=== PATIENT | male | born 1995 | race Caucasian/White ===

== ENCOUNTER 2017-07-17 21:09 | Emergency (ER) | payer OTHER ==
--- NOTE | 2017-07-17 21:25 | EDM.PDOC ---
ED HPI GENERAL MEDICAL PROBLEM - General Chief Complaint: Fever Stated Complaint: FEVER Time Seen by Provider: 07/17/17 21:25 Source of Information: Reports: Patient - History of Present Illness INITIAL COMMENTS - FREE TEXT/NARRATIVE: HISTORY AND PHYSICAL: History of present illness: [Patient presents with fever for 3 days waxing and waning he states his fever peaked at 105 at home he has been taking Tylenol fever has been hanging around 100 today he has no other symptoms such as nausea vomiting chills sweats no cough or abdominal pain no chest pain shortness breath dizziness or palpitation no bowel or urine symptoms, he is in no distress and nontoxic-appearing he does have a 2 out of 10 diffuse headache described as sharp no nuchal rigidity Kernig and Brudzinski sign negative He states he does have chronic sinusitis and uses [id number] symptomatic therapies for this He is also recently been treated for a respiratory infection with "antibiotics" uncertain which antibiotic he was treated through walk-in clinic ] Review of systems: As per history of present illness and below otherwise all systems reviewed and negative. Past medical history: As per history of present illness and as reviewed below otherwise noncontributory. Surgical history: As per history of present illness and as reviewed below otherwise noncontributory. Social history: No reported history of drug or alcohol abuse. Family history: As per history of present illness and as reviewed below otherwise noncontributory. Physical exam: HEENT: Atraumatic, normocephalic, pupils reactive, negative for conjunctival pallor or scleral icterus, mucous membranes moist, throat clear, neck supple, nontender, trachea midline. No meningeal signs patient does have some supraorbital sinus tenderness right greater than left Lungs: Clear to auscultation, on right good air entry slight end expiratory wheeze left lung is clear throughout chest nontender. Lungs cleared post DuoNeb Heart: S1S2, regular, negative for clicks, rubs, or JVD. Abdomen: Soft, nondistended, nontender. Negative for masses or hepatosplenomegaly. Negative for costovertebral tenderness. Pelvis: Stable nontender. Genitourinary: Deferred. Rectal: Deferred. Extremities: Atraumatic, negative for cords or calf pain. Neurovascular unremarkable. Neuro: Awake, alert, oriented. Cranial nerves II through XII unremarkable. Cerebellum unremarkable. Motor and sensory unremarkable throughout. Exam nonfocal. Skin unremarkable no rashes or open lesions/sores abscess etc. Diagnostics: [CBC CMP UA blood cultures chest 2 views Influenza ] Lumbar puncture was considered however patient refused Therapeutics: [Patient took 2 Tylenol at home just prior to arrival 1 L normal saline bolus 1 g Rocephin IV Toradol 30 mg IV Azithromycin 1 g by mouth now ] Impression: [Fever] Decreased breath sounds on right with slight end expiratory wheeze Sinusitis Definitive disposition and diagnosis as appropriate pending reevaluation and review of above. head Pain Score (Numeric/FACES): 7 - Related Data Allergies Allergy/AdvReac Type Severity Reaction Status Date / Time Penicillins Allergy Rash Verified 07/17/17 21:20 Home Meds: Home Meds . [No Known Home Meds] 07/17/17 [History] Past Medical History - Past Health History Medical/Surgical History: Denies Medical/Surgical History Social & Family History - Family History Family Medical History: Noncontributory ED ROS GENERAL - Review of Systems Review Of Systems: ROS reveals no pertinent complaints other than HPI. ED EXAM, GENERAL - Physical Exam Exam: See Below Course - Vital Signs Last Recorded V/S: Last Vital Signs Temp 100.1 F 07/17/17 22:38 Pulse 88 07/17/17 22:38 Resp 16 07/17/17 22:38 BP 120/75 07/17/17 22:38 Pulse Ox 99 07/17/17 22:38 - Orders/Labs/Meds Orders: Active Orders 24 hr Category Date Time Status RT Aerosol Therapy [RC] ASDIRECTED Care 07/17/17 22:18 Active Chest 2V [CR] Stat Exams 07/17/17 21:27 Taken CHLAMYDIA AND GONORRHEA BY TMA Stat Lab 07/17/17 21:29 Received CULTURE BLOOD [BC] Stat Lab 07/17/17 21:40 Received CULTURE BLOOD [BC] Stat Lab 07/17/17 21:54 Received CULTURE STREP A CONFIRMATION [RM] Stat Lab 07/17/17 21:25 Results STREP SCRN A RAPID W CULT CONF [] Stat Lab 07/17/17 21:25 Results Sodium Chloride 0.9% [Normal Saline] 1,000 ml Med 07/17/17 22:50 Active IV STAT Sodium Chloride 0.9% [Saline Flush] Med 07/17/17 22:51 Active 10 ml FLUSH ASDIRECTED PRN Sodium Chloride 0.9% [Saline Flush] Med 07/17/17 22:51 Active 2.5 ml FLUSH ASDIRECTED PRN cefTRIAXone [Rocephin in Dextrose,Iso-Osm 1 GM/50 ML] 1 Med 07/17/17 22:50 Active gm Premix Bag 1 bag IV ONETIME Blood Culture x2 Reflex Set [OM.PC] Stat Oth 07/17/17 21:24 Ordered Saline Lock Insert [OM.PC] Stat Oth 07/17/17 22:52 Ordered Medication Orders Ceftriaxone Sodium/Dextrose 1 (gm/ Premix) 50 mls @ 100 mls/hr IV ONETIME ONE Stop: 07/17/17 23:19 Sodium Chloride (Normal Saline) 1,000 mls @ 999 mls/hr IV STAT ONE Stop: 07/17/17 23:50 Sodium Chloride (Saline Flush) 10 ml FLUSH ASDIRECTED PRN PRN Reason: Keep Vein Open Sodium Chloride (Saline Flush) 2.5 ml FLUSH ASDIRECTED PRN PRN Reason: Keep Vein Open Labs: Laboratory Tests 07/17/17 07/17/17 07/17/17 Range/Units 21:29 21:40 21:40 WBC 7.22 (4.0-11.0) K/uL RBC 6.39 H (4.50-5.90) M/uL Hgb 16.2 (13.0-17.0) g/dL Hct 47.3 (38.0-50.0) % MCV 74.0 L (80.0-98.0) fL MCH 25.4 L (27.0-32.0) pg MCHC 34.2 (31.0-37.0) g/dL RDW Std Deviation 37.7 (28.0-62.0) fl RDW Coeff of Silva 14 (11.0-15.0) % Plt Count 207 (150-400) K/uL MPV 10.50 (7.40-12.00) fL Neut % (Auto) 68.4 (48.0-80.0) % Lymph % (Auto) 24.2 (16.0-40.0) % Dickson % (Auto) 7.2 (0.0-15.0) % Eos % (Auto) 0.1 (0.0-7.0) % Baso % (Auto) 0.1 (0.0-1.5) % Neut # (Auto) 4.9 (1.4-5.7) K/uL Lymph # (Auto) 1.8 (0.6-2.4) K/uL Dickson # (Auto) 0.5 (0.0-0.8) K/uL Eos # (Auto) 0.0 (0.0-0.7) K/uL Baso # (Auto) 0.0 (0.0-0.1) K/uL Nucleated RBC % 0.0 /100WBC Nucleated RBCs # 0 K/uL Sodium 138 (136-148) mmol/L Potassium 3.6 (3.5-5.1) mmol/L Chloride 102 (98-107) mmol/L Carbon Dioxide 23.9 (21.0-32.0) mmol/L BUN 15 (7.0-18.0) mg/dL Creatinine 1.0 (0.8-1.3) mg/dL Est Cr Clr Drug Dosing 133.58 mL/min Estimated GFR (MDRD) > 60.0 ml/min Glucose 106 (74-106) mg/dL Calcium 9.3 (8.5-10.1) mg/dL Total Bilirubin 0.7 (0.2-1.0) mg/dL AST 23 (15-37) U/L ALT 36 (14-63) U/L Alkaline Phosphatase 70 (46-116) U/L Total Protein 8.3 H (6.4-8.2) g/dL Albumin 4.4 (3.4-5.0) g/dL Globulin 3.9 H (2.0-3.5) g/dL Albumin/Globulin Ratio 1.1 L (1.3-2.8) Urine Color YELLOW Urine Appearance CLEAR Urine pH 8.5 H (5.0-8.0) Ur Specific [place] 1.015 (1.001-1.035) Urine Protein NEGATIVE (NEGATIVE) mg/dL Urine Glucose (UA) NEGATIVE (NEGATIVE) mg/dL Urine Ketones NEGATIVE (NEGATIVE) mg/dL Urine Occult Blood NEGATIVE (NEGATIVE) Urine Nitrite NEGATIVE (NEGATIVE) Urine Bilirubin NEGATIVE (NEGATIVE) Urine Urobilinogen 0.2 (<2.0) EU/dL Ur Leukocyte Esterase NEGATIVE (NEGATIVE) Urine RBC 0-1 (0-2/HPF) Urine WBC 0-1 (0-5/HPF) Ur Epithelial Cells RARE (NONE-FEW) Urine Bacteria RARE (NEGATIVE) Meds: Medications Generic Name Dose Route Start Last Admin Trade Name Freq PRN Reason Stop Dose Admin Ceftriaxone Sodium/Dextrose 1 50 mls @ 100 mls/hr 07/17/17 22:50 gm/ Premix IV 07/17/17 23:19 ONETIME ONE Sodium Chloride 1,000 mls @ 999 mls/hr 07/17/17 22:50 Normal Saline IV 07/17/17 23:50 STAT ONE Sodium Chloride 10 ml 07/17/17 22:51 Saline Flush FLUSH ASDIRECTED PRN Keep Vein Open Sodium Chloride 2.5 ml 07/17/17 22:51 Saline Flush FLUSH ASDIRECTED PRN Keep Vein Open Discontinued Medications Generic Name Dose Route Start Last Admin Trade Name Freq PRN Reason Stop Dose Admin Albuterol/Ipratropium 3 ml 07/17/17 22:18 07/17/17 22:35 Duoneb 3.0-0.5 Mg/3 Ml NEB 07/17/17 22:19 3 ml ONETIME ONE Administration Azithromycin 1,000 mg 07/17/17 22:54 Zithromax PO 07/17/17 22:55 NOW STA Ketorolac Tromethamine 30 mg 07/17/17 22:50 Toradol IVPUSH 07/17/17 22:51 ONETIME ONE Departure - Departure Time of Disposition: 23:03 Disposition: Home, Self-Care 01 Condition: Good Clinical Impression: Fever - Discharge Information Referrals: PCP,None [Primary Care Provider] - Forms: ED Department Discharge Additional Instructions: Medication as prescribed Return if symptoms persist or worsen or if new concerning symptomatology develops Follow-up with primary care in 2 weeks sooner as needed [facility] [address] [place] [address] The following information is given to patients seen in the emergency department who are being discharged to home. This information is to outline your options for follow-up care. We provide all patients seen in our emergency department with a follow-up referral. The need for follow-up, as well as the timing and circumstances, are variable depending upon the specifics of your emergency department visit. If you don't have a primary care physician on staff, we will provide you with a referral. We always advise you to contact your personal physician following an emergency department visit to inform them of the circumstance of the visit and for follow-up with them and/or the need for any referrals to a consulting specialist. The emergency department will also refer you to a specialist when appropriate. This referral assures that you have the opportunity for follow-up care with a specialist. All of these measure are taken in an effort to provide you with optimal care, which includes your follow-up. Under all circumstances we always encourage you to contact your private physician who remains a resource for coordinating your care. When calling for follow-up care, please make the office aware that this follow-up is from your recent emergency room visit. If for any reason you are refused follow-up, please contact the [facility] emergency department at and asked to speak to the emergency department charge nurse. - My Orders Last 24 Hours: My Active Orders 07/17/17 21:24 Blood Culture x2 Reflex Set [OM.PC] Stat 07/17/17 21:25 CULTURE STREP A CONFIRMATION [RM] Stat STREP SCRN A RAPID W CULT CONF [RM] Stat 07/17/17 21:27 Chest 2V [CR] Stat 07/17/17 21:29 CHLAMYDIA AND GONORRHEA BY TMA Stat 07/17/17 21:40 CULTURE BLOOD [BC] Stat 07/17/17 21:54 CULTURE BLOOD [BC] Stat 07/17/17 22:18 RT Aerosol Therapy [RC] ASDIRECTED 07/17/17 22:50 Sodium Chloride 0.9% [Normal Saline] 1,000 ml IV STAT cefTRIAXone [Rocephin in Dextrose,Iso-Osm 1 GM/50 ML] 1 gm Premix Bag 1 bag IV ONETIME 07/17/17 22:51 Sodium Chloride 0.9% [Saline Flush] 10 ml FLUSH ASDIRECTED PRN Sodium Chloride 0.9% [Saline Flush] 2.5 ml FLUSH ASDIRECTED PRN 07/17/17 22:52 Saline Lock Insert [OM.PC] Stat - Assessment/Plan Last 24 Hours: My Active Orders 07/17/17 21:24 Blood Culture x2 Reflex Set [OM.PC] Stat 07/17/17 21:25 CULTURE STREP A CONFIRMATION [RM] Stat STREP SCRN A RAPID W CULT CONF [RM] Stat 07/17/17 21:27 Chest 2V [CR] Stat 07/17/17 21:29 CHLAMYDIA AND GONORRHEA BY TMA Stat 07/17/17 21:40 CULTURE BLOOD [BC] Stat 07/17/17 21:54 CULTURE BLOOD [BC] Stat 07/17/17 22:18 RT Aerosol Therapy [RC] ASDIRECTED 07/17/17 22:50 Sodium Chloride 0.9% [Normal Saline] 1,000 ml IV STAT cefTRIAXone [Rocephin in Dextrose,Iso-Osm 1 GM/50 ML] 1 gm Premix Bag 1 bag IV ONETIME 07/17/17 22:51 Sodium Chloride 0.9% [Saline Flush] 10 ml FLUSH ASDIRECTED PRN Sodium Chloride 0.9% [Saline Flush] 2.5 ml FLUSH ASDIRECTED PRN 07/17/17 22:52 Saline Lock Insert [OM.PC] Stat
[2017-07-17 22:14] LABS: CHLORIDE,CL 102 mmol/L (98-107); SODIUM,NA 138 mmol/L (136-148)
[2017-07-17] MEDS ORDERED: Albuterol/Ipratropium 3.0-0.5 MG/3 ML Neb Soln NEB ONE (22:18)
[2017-07-17] MEDS ORDERED: Sodium Chloride 0.9% 1,000 ML IV ONE (22:50)
[2017-07-17] MEDS ORDERED: cefTRIAXone 1 GM in Premix Bag 1 BAG IV ONE (22:50)
[2017-07-17] MEDS ORDERED: Ketorolac 30 MG/ML SDV IVPUSH ONE (22:50)
[2017-07-17] MEDS ORDERED: Sodium Chloride 0.9% 2.5 ML Syringe FLUSH PRN (22:51)
[2017-07-17] MEDS ORDERED: Sodium Chloride 0.9% 10 ML Syringe FLUSH PRN (22:51)
[2017-07-17] MEDS ORDERED: Azithromycin 250 MG Tab PO STA (22:54)
--- NOTE | 2017-07-18 10:01 | CR ---
EXAM DATE: 07/17/17 PATIENT'S AGE: 21 Patient: SIRI HERRERA Facility: [place], [place] Site . Site : 1995 Study: XRay Chest [id number]/[id number] 10:07:45 PM Ordering Physician: Papito Matos Final Report: INDICATION: FEVER, HEADACHE, WEAKNESS, TINGLING IN EXTREMITIES TECHNIQUE: Chest 2 views. COMPARISON: None. FINDINGS: Cardiovascular and mediastinum: Heart size and vasculature are normal in caliber and appearance. Mediastinum is within normal limits. Lungs and pleural spaces: Lungs are clear. No sign of infiltrate or mass. No sign of pleural effusion. No pneumothorax. Bones and soft tissues: No significant findings. IMPRESSION: Unremarkable chest. Dictated by: Flavio Cabello MD @ 07/17/2017 22:09:11 (Electronic Signature) Report Signed by Proxy. MAHESH
== END 2017-07-18 00:25 | disposition home or self-care (01) ==
LOC: MW.ED 21:09
DX: R50.9 Fever, unspecified (principal); J32.9 Chronic sinusitis, unspecified; Z88.0 Allergy status to penicillin
CPT/HCPCS: 36415; 71046; 80053; 81001; 85025; 87040; 87081; 87491; 87591; 87804; 87880; 94640; 96361; 96365; 96375; 99284; A9270; J0696; J1885; J7040